=== PATIENT | female | born 1990 | race Caucasian/White ===

== ENCOUNTER 2016-12-06 17:10 | Emergency (ER) | payer OTHER ==
[~2016-12-06] VITALS: Ht 154.9 cm; Wt 74.4 kg
[2016-12-06 18:54] LABS: EOSINOPHIL (%) 0.7 % (0-5); EOSINOPHIL COUNT 0.1 K/uL (0-0.3); HEMATOCRIT 47.1 % (36.0-46.0); IMMATURE GRANULOCYTE (%) 0.3 % (0.0-0.7); INSTRUMENT ABS NEUTROPHIL CT 6.7 K/uL; LYMPHOCYTE COUNT 2.6 K/uL (1.0-2.8); MCH 29.3 PG (29.0-34.0); MCHC 33.1 G/DL (30.0-36.0); MCV 88.5 FL (83-99); MEAN PLAT.VOLUME 9.1 uM^3 (9.5-12.4); MONOCYTE (%) 6.3 % (3-12); MONOCYTE COUNT 0.6 K/uL (0-0.8); NEUTROPHIL (%) 66.3 % (45-76); NEUTROPHIL COUNT 6.7 K/uL (1.8-6.4); PLATELET COUNT 365 K/uL (156-360); RBC DIS.WIDTH-CV 11.9 % (11.8-14.6); RBC DIS.WIDTH-SD 38.4 % (39-53); RED BLOOD COUNT 5.32 M/uL (3.80-5.20)
[2016-12-06 19:04] LABS: CHLORIDE 102 mEq/L (99-109); SODIUM 142 mEq/L (136-147)
[2016-12-06 19:06] LABS: GLUCOSE 89 mg/dL (70-99)
[2016-12-06 19:07] LABS: ANION GAP 17 MEQ/L (2-14)
[2016-12-06 19:08] LABS: D-DIMER ELISA 0.22 mg/L FEU (< 0.57)
[2016-12-06 19:09] LABS: ALKALINE PHOSPHATASE 88 IU/L (3-129)
[2016-12-06 19:10] LABS: GFR ESTIMATE (CALCULATED) > 59 mL/min/
[2016-12-06 19:11] LABS: UREA NITROGEN (BUN) 8 mg/dL (9-23)
[2016-12-06 19:18] LABS: QUANTITATIVE HCG < 4.0 MIU/ML
[2016-12-06 20:43] LABS: ADD MIUA? NO; BILIRUBIN NEGATIVE; BLOOD NEGATIVE; COLOR STRAW ((YELLOW)); GLUCOSE (STRIP) NEGATIVE; KETONES 5; LEUKOCYTES NEGATIVE; NITRITE NEGATIVE; PROTEIN (STRIP) NEGATIVE; SPECIFIC GRAVITY 1.005 (1.000-1.030); UROBILINOGEN 0.2 MG/DL (0.2-1.0)
[2016-12-06 21:49] VITALS: BP 120/87
== END 2016-12-06 21:54 | disposition home or self-care (01) ==
LOC: EME 17:10
PROVIDERS: Emergency Medicine
DX: F41.9 Anxiety disorder, unspecified (principal); T42.4X6A Underdosing of benzodiazepines, initial encounter; T43.596A Underdosing of other antipsychotics and neuroleptics, initial encounter; R00.2 Palpitations; R45.1 Restlessness and agitation
CPT/HCPCS: 80053; 81003; 83605; 84443; 84702; 85025; 85379; 93005; 99281; 99285; J2060; J2405; J7030

== ENCOUNTER 2016-12-08 23:38 | Emergency (ER) | payer OTHER ==
[~2016-12-08] VITALS: Ht 162.6 cm; Wt 74.9 kg
[2016-12-09 00:26] LABS: HEMATOCRIT 43.6 % (36.0-46.0); MCH 29.7 PG (29.0-34.0); MCHC 33.3 G/DL (30.0-36.0); MCV 89.3 FL (83-99); PLATELET COUNT 349 K/uL (156-360); RBC DIS.WIDTH-CV 11.9 % (11.8-14.6); RED BLOOD COUNT 4.88 M/uL (3.80-5.20); WHITE BLOOD COUNT 10.1 K/uL (4.1-10.2)
[2016-12-09 00:34] LABS: CHLORIDE 106 mEq/L (99-109); POTASSIUM 3.6 mEq/L (3.7-5.4); SODIUM 143 mEq/L (136-147)
[2016-12-09 00:37] LABS: GLUCOSE 92 mg/dL (70-99)
[2016-12-09 00:38] LABS: ANION GAP 15 MEQ/L (2-14)
[2016-12-09 00:40] LABS: ALKALINE PHOSPHATASE 82 IU/L (3-129); GFR ESTIMATE (CALCULATED) > 59 mL/min/
[2016-12-09 00:41] LABS: UREA NITROGEN (BUN) 8 mg/dL (9-23)
[2016-12-09 00:51] LABS: QUANTITATIVE HCG < 4.0 MIU/ML
[2016-12-09 01:27] LABS: ADD MIUA? YES; BILIRUBIN NEGATIVE; BLOOD SMALL; COLOR YELLOW ((YELLOW)); GLUCOSE (STRIP) NEGATIVE; KETONES 5; LEUKOCYTES NEGATIVE; NITRITE NEGATIVE; PROTEIN (STRIP) NEGATIVE; SPECIFIC GRAVITY 1.006 (1.000-1.030); UROBILINOGEN 0.2 MG/DL (0.2-1.0)
[2016-12-09 01:36] LABS: BACTERIA RARE /HPF; EPITHELIAL CELLS RARE /HPF; MUCUS TRACE /LPF; RED BLOOD CELLS 0-5 /HPF (0-5); UCUL ADDED? NO; WHITE BLOOD CELLS 0-5 /HPF (0-5)
[2016-12-09 03:48] LABS: CREATINE KINASE 132 IU/L (1-294)
[2016-12-09 03:52] LABS: AMPHETAMINE NEGATIVE (500 ng/mL); BARBITURATES NEGATIVE (200 ng/mL); BENZODIAZEPINES PRESUMPTIVE POSITIVE (150 ng/mL); COCAINE NEGATIVE (150 ng/mL); METHADONE NEGATIVE (200 ng/mL); METHAMPHETAMINE NEGATIVE (500 ng/mL); OPIATES (MORPHINE) NEGATIVE (100 ng/mL); OXYCODONE NEGATIVE (100 ng/mL); PHENCYCLIDINE NEGATIVE (25 ng/mL); PROPOXYPHENE NEGATIVE (300 ng/mL); THC CANNABINOIDS NEGATIVE (50 ng/mL); TRICYCLIC ANTIDEPRESSANTS NEGATIVE (300 ng/mL)
[2016-12-09 03:53] LABS: INTERNAL CONTROLS VALID? YES
[2016-12-09 04:34] LABS: BENZODIAZEPINES QUANT VALUE 0 NG/ML; BENZODIAZEPINES, URINE SCREEN Negative (200 ng/mL)
[2016-12-09] MEDS ORDERED: ANTIVERT25 MG PO (04:51)
[2016-12-09] MEDS ORDERED: VISTARIL50 MG PO (04:51)
[2016-12-09 05:22] VITALS: BP 119/99
[2016-12-09 06:19] LABS: ADD MEDTOX COMMENT Y
[2016-12-09] MEDS ORDERED: ATARAX,VISTARIL50 MG PO (19:33)
== END 2016-12-09 05:31 | disposition home or self-care (01) ==
LOC: EME 23:38
DX: M79.1 Myalgia (principal); G47.00 Insomnia, unspecified; R42 Dizziness and giddiness; J45.909 Unspecified asthma, uncomplicated
CPT/HCPCS: 80053; 81003; 82550; 84443; 84702; 84999; 85027; 99281; 99283; Q0177

== ENCOUNTER 2016-12-09 15:59 | Emergency (ER) | payer OTHER ==
[~2016-12-09] VITALS: Ht 154.9 cm; Wt 73.7 kg
[~2016-12-09 15:59] MED LIST: ANTIVERT25 MG PO; VISTARIL50 MG PO
[2016-12-09 19:00] LABS: ADD MIUA? NO; BILIRUBIN NEGATIVE; BLOOD NEGATIVE; COLOR STRAW ((YELLOW)); GLUCOSE (STRIP) NEGATIVE; KETONES 20; LEUKOCYTES NEGATIVE; NITRITE NEGATIVE; PROTEIN (STRIP) NEGATIVE; SPECIFIC GRAVITY 1.006 (1.000-1.030); UROBILINOGEN 0.2 MG/DL (0.2-1.0)
[2016-12-09] MEDS ORDERED: ATARAX,VISTARIL50 MG PO (19:33)
[2016-12-09 19:45] VITALS: BP 132/93
== END 2016-12-09 19:45 | disposition home or self-care (01) ==
LOC: EME 15:59
PROVIDERS: Nurse Practitioner Family
DX: F43.9 Reaction to severe stress, unspecified (principal); F98.5 Adult onset fluency disorder; R51 Headache; R42 Dizziness and giddiness; R41.0 Disorientation, unspecified; R00.0 Tachycardia, unspecified
CPT/HCPCS: 70450; 80048; 81003; 82140; 84702; 85027; 93005; 99281; 99284; G0480; Q0177

== ENCOUNTER 2016-12-30 06:11 | Emergency (ER) | payer OTHER ==
[~2016-12-30] VITALS: Ht 154.9 cm; Wt 72.0 kg
[~2016-12-30 06:11] MED LIST changes: +ATARAX,VISTARIL50 MG PO
[2016-12-30] MEDS ORDERED: MELATONIN10 M1 PO (06:19)
[2016-12-30 06:59] LABS: ADD MIUA? NO; BILIRUBIN NEGATIVE; BLOOD NEGATIVE; COLOR STRAW ((YELLOW)); GLUCOSE (STRIP) NEGATIVE; KETONES NEGATIVE; LEUKOCYTES NEGATIVE; NITRITE NEGATIVE; PROTEIN (STRIP) NEGATIVE; SPECIFIC GRAVITY 1.005 (1.000-1.030); UROBILINOGEN 0.2 MG/DL (0.2-1.0)
[2016-12-30 07:06] LABS: EOSINOPHIL (%) 1.3 % (0-5); EOSINOPHIL COUNT 0.1 K/uL (0-0.3); IMMATURE GRANULOCYTE (%) 0.3 % (0.0-0.7); INSTRUMENT ABS NEUTROPHIL CT 6.7 K/uL; LYMPHOCYTE COUNT 2.2 K/uL (1.0-2.8); MCH 29.3 PG (29.0-34.0); MCHC 33.9 G/DL (30.0-36.0); MCV 86.6 FL (83-99); MEAN PLAT.VOLUME 8.8 uM^3 (9.5-12.4); MONOCYTE (%) 4.7 % (3-12); MONOCYTE COUNT 0.4 K/uL (0-0.8); NEUTROPHIL (%) 70.4 % (45-76); NEUTROPHIL COUNT 6.7 K/uL (1.8-6.4); PLATELET COUNT 349 K/uL (156-360); RBC DIS.WIDTH-CV 11.7 % (11.8-14.6); RBC DIS.WIDTH-SD 37.2 % (39-53); RED BLOOD COUNT 5.08 M/uL (3.80-5.20); WHITE BLOOD COUNT 9.5 K/uL (4.1-10.2)
[2016-12-30 07:17] LABS: D-DIMER ELISA 0.18 mg/L FEU (< 0.57)
[2016-12-30 07:39] LABS: ANION GAP 13 MEQ/L (2-14); CHLORIDE 103 MEQ/L (99-109); POTASSIUM 3.4 MEQ/L (3.7-5.4); SAMPLE HEMOLYSIS CHECK 0; SAMPLE ICTERIC CHECK 0; SAMPLE LIPEMIA CHECK 0; SODIUM 142 MEQ/L (136-147)
[2016-12-30 07:44] LABS: GFR ESTIMATE (CALCULATED) > 59 mL/min/; GLUCOSE 86 mg/dL (70-99); UREA NITROGEN (BUN) 10 mg/dL (9-23)
[2016-12-30 07:49] LABS: QUANTITATIVE HCG < 4.0 MIU/ML; TROP-I INTERPRETATION NEGATIVE; TROPONIN-I < 0.01 ng/mL (0.0-0.30)
[2016-12-30 09:26] VITALS: BP 111/84
== END 2016-12-30 10:16 | disposition home or self-care (01) ==
LOC: EME 06:11
PROVIDERS: Emergency Medicine
DX: R07.89 Other chest pain (principal); F41.9 Anxiety disorder, unspecified; J45.909 Unspecified asthma, uncomplicated
CPT/HCPCS: 71020; 80048; 81003; 84484; 84702; 85025; 85379; 93005; 99281; 99285; J1885

== ENCOUNTER 2017-01-09 18:39 | Emergency (ER) | payer OTHER ==
[~2017-01-09] VITALS: Ht 154.9 cm; Wt 59.4 kg
[~2017-01-09 18:39] MED LIST changes: +MELATONIN10 M1 PO
[2017-01-09 20:14] LABS: HEMATOCRIT 43.5 % (36.0-46.0); MCH 29.2 PG (29.0-34.0); MCHC 32.9 G/DL (30.0-36.0); MEAN PLAT.VOLUME 9.3 uM^3 (9.5-12.4); PLATELET COUNT 319 K/uL (156-360); RBC DIS.WIDTH-CV 11.9 % (11.8-14.6); RBC DIS.WIDTH-SD 38.6 % (39-53); RED BLOOD COUNT 4.89 M/uL (3.80-5.20); WHITE BLOOD COUNT 7.7 K/uL (4.1-10.2)
[2017-01-09 20:29] LABS: CHLORIDE 107 mEq/L (99-109); POTASSIUM 3.6 mEq/L (3.7-5.4); SODIUM 144 mEq/L (136-147)
[2017-01-09 20:30] LABS: GLUCOSE 83 mg/dL (70-99)
[2017-01-09 20:32] LABS: ANION GAP 10 MEQ/L (2-14)
[2017-01-09 20:34] LABS: GFR ESTIMATE (CALCULATED) > 59 mL/min/
[2017-01-09 20:35] LABS: UREA NITROGEN (BUN) 10 mg/dL (9-23)
[2017-01-09 20:37] LABS: QUANTITATIVE HCG < 4.0 MIU/ML
[2017-01-09 21:08] VITALS: BP 121/92
== END 2017-01-09 21:13 | disposition home or self-care (01) ==
LOC: EME 18:39
PROVIDERS: Emergency Medicine
DX: R56.9 Unspecified convulsions (principal); R41.82 Altered mental status, unspecified; J45.909 Unspecified asthma, uncomplicated
CPT/HCPCS: 70450; 80048; 84702; 85027; 93005; 99281; 99283

== ENCOUNTER → 2017-02-12 | Outpatient (CLI) | payer OTHER | END | disposition home or self-care (01) | LOC: EEG 09:08 | DX: G40.89 Other seizures (principal) | CPT/HCPCS: 95954 ==

== ENCOUNTER 2017-04-03 19:17 | Emergency (ER) | payer OTHER ==
[~2017-04-03] VITALS: Ht 154.9 cm; Wt 65.9 kg
[2017-04-03 21:01] VITALS: BP 119/84
== END 2017-04-03 21:03 | disposition home or self-care (01) ==
LOC: EME 19:17
DX: R68.84 Jaw pain (principal); R56.9 Unspecified convulsions
CPT/HCPCS: 99281; 99283

== ENCOUNTER 2017-04-10 10:27 | Emergency (ER) | payer OTHER ==
[~2017-04-10] VITALS: Ht 154.9 cm; Wt 68.3 kg
[2017-04-10 11:30] LABS: HEMATOCRIT 45.3 % (36.0-46.0); MCH 28.6 PG (29.0-34.0); MCHC 33.3 G/DL (30.0-36.0); MCV 85.8 FL (83-99); RBC DIS.WIDTH-CV 11.9 % (11.8-14.6); RBC DIS.WIDTH-SD 37.1 % (39-53); RED BLOOD COUNT 5.28 M/uL (3.80-5.20)
[2017-04-10 11:33] LABS: CHLORIDE 104 mEq/L (99-109); POTASSIUM 4.3 mEq/L (3.7-5.4); SODIUM 137 mEq/L (136-147)
[2017-04-10 11:34] LABS: ADD MIUA? YES; BILIRUBIN NEGATIVE; BLOOD NEGATIVE; COLOR YELLOW ((YELLOW)); GLUCOSE (STRIP) NEGATIVE; KETONES NEGATIVE; LEUKOCYTES MODERATE; NITRITE NEGATIVE; PROTEIN (STRIP) NEGATIVE; SPECIFIC GRAVITY 1.004 (1.000-1.030); UROBILINOGEN 0.2 MG/DL (0.2-1.0)
[2017-04-10 11:35] LABS: GLUCOSE 98 mg/dL (70-99)
[2017-04-10 11:36] LABS: ANION GAP 11 MEQ/L (2-14)
[2017-04-10 11:39] LABS: GFR ESTIMATE (CALCULATED) > 59 mL/min/
[2017-04-10 11:40] LABS: UREA NITROGEN (BUN) 12 mg/dL (9-23)
[2017-04-10 11:52] LABS: BACTERIA RARE /HPF; EPITHELIAL CELLS 2+ /HPF; MUCUS NONE SEEN /LPF; RED BLOOD CELLS 0-5 /HPF (0-5); UCUL ADDED? NO
[2017-04-10 12:23] LABS: MEAN PLAT.VOLUME 9.4 uM^3 (9.5-12.4); PLATELET COUNT 332 K/uL (156-360)
[2017-04-10 12:24] LABS: HEMATOLOGY COMMENT 1 SMEAR COMPATIBLE; PLAT.SUFFICIENCY ADEQUATE
[2017-04-10 12:30] LABS: QUANTITATIVE HCG < 4.0 MIU/ML
[2017-04-10] MEDS ORDERED: CIPRO500 MG PO (15:09)
[2017-04-10] MEDS ORDERED: TYLENOL WITH C1 EACH PO (15:09)
[2017-04-10 15:24] VITALS: BP 108/76
== END 2017-04-10 15:26 | disposition home or self-care (01) ==
LOC: EME 10:27
DX: N39.0 Urinary tract infection, site not specified (principal); N83.201 Unspecified ovarian cyst, right side; N20.0 Calculus of kidney; Z87.442 Personal history of urinary calculi
CPT/HCPCS: 74176; 80048; 81003; 84702; 85027; 99281; 99285